=== PATIENT | female | born 1965 | race American Indian/Alaskan Native ===

== ENCOUNTER 2017-04-30 16:24 | Emergency (ER) | payer SELFPAY ==
[2017-04-30 18:56] VITALS: BP 132/88
== END 2017-04-30 22:50 | disposition left against medical advice (07) ==
LOC: ED 16:24
DX: Z53.21 Procedure and treatment not carried out due to patient leaving prior to being seen by health care provider (principal)

== ENCOUNTER 2017-05-01 07:02 | Emergency (ER) | payer SELFPAY ==
[2017-05-01 11:44] LABS: Bilirubin,Urine NEG (Negative); Blood,Urine NEG (Negative); Ketones,Urine NEG (Negative); Leukocyte Esterase,Urine NEG (Negative); Nitrite,Urine NEG (Negative); Protein,Urine <15 mg/dL mg/dL (Negative); Urobilinogen,Urine < 2.0 mg/dL (<2.0)
[2017-05-01 12:09] VITALS: BP 120/70
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
== END 2017-05-01 12:08 | disposition home or self-care (01) ==
LOC: ED 07:02
DX: M54.5 Low back pain (principal); I10 Essential (primary) hypertension
CPT/HCPCS: 81001; 99283